=== PATIENT | male | born 1950 | race Caucasian/White ===

== ENCOUNTER 2021-07-24 12:37 | Emergency (ER) | payer MEDICARE, SELFPAY ==
--- NOTE | 2021-07-24 12:42 | ED.FALL ---
HPI - Fall General Chief Complaint: Fall Stated Complaint: head injury Time Seen by Provider: 07/24/21 12:43 Source: patient, family and RN notes reviewed History of Present Illness HPI Narrative: Patient is 71-year-old male who presents the urgent care with his son-in-law with complaints of a fall. Patient states that he tripped down one step and hit his head on the car prior to arrival. Patient has not had headache, fever, nausea, vomiting and has not lost consciousness. Patient states that he did scrape up the left knee but is not having any difficulty bearing weight or with ambulation. Patient is not on blood thinners. Denies of any confusion. No other acute complaints. No acute distress noted. Patient aware of the plan of care. Some parts of this dictation were generated by voice recognition software and may contain typographical and/or grammatical inaccuracies. Related Data Home Medications Medication Instructions Recorded Confirmed Unable to Obtain Home Medications 07/24/21 07/24/21 Allergies Allergy/AdvReac Type Severity Reaction Status Date / Time No Known Allergies Allergy Verified 07/24/21 12:59 Review of Systems Review of Systems: CONSTITUTIONAL: Denies fever, chills, or sweats. EYES: Denies visual changes, redness, or discharge. ENT: Denies rhinorrhea, congestion, sore throat, or otalgia. CARDIOVASCULAR: Denies chest pain, palpitations, or edema. RESPIRATORY: Denies cough or dyspnea. GASTROINTESTINAL: Denies abdominal pain, nausea, vomiting, or diarrhea. GENITOURINARY: Denies dysuria or hematuria. SKIN: Denies rash or itching. Reports of abrasion to left knee, bilateral hands and forehead MUSCULOSKELETAL: Denies back pain, joint pain, or myalgia. NEUROLOGIC: Denies headache, numbness, or weakness. Reports of hitting his head All other systems reviewed are negative, except as documented in HPI. PMFSH Comments At the time of my signature, I reviewed and agree with the nursing past medical, surgical, social, and family history. There is no relevant family history pertinent to the patient complaint. Exam Narrative: GENERAL: This is a well-nourished, well-developed patient, in no apparent distress. HEAD: normocephalic, atraumatic. EYES: PERRL. Sclera clear/white. Vision is grossly intact. EARS: External ears normal NOSE: External nose normal with no obvious nasal discharge, nares without redness, no rhinorrhea. THROAT: Mucous membranes moist NECK: Neck supple CARDIOVASCULAR: Regular rate and rhythm RESPIRATORY: Slight crackles throughout SKIN: Superficial abrasions noted bilateral hands, forehead and left knee. Warm, intact with no suspicious lesions or rash, good texture and turgor. NEURO: awake, alert, and oriented to person, place and time. There were no obvious focal neurologic abnormalities. EXTREMITIES: No clubbing, cyanosis, or edema. Range of motion all extremity within normal limits. Ambulation normal Course Course Level of Care: Express Care Visit Vital Signs Vital signs: Vital Signs Temperature 98.4 F 07/24/21 12:55 Pulse Rate 85 07/24/21 12:55 Respiratory Rate 20 07/24/21 12:55 Blood Pressure 149/100 H 07/24/21 12:55 Pulse Oximetry 99 07/24/21 12:55 Temperature 98.4 F 07/24/21 12:55 Pulse Rate 85 07/24/21 12:55 Respiratory Rate 20 07/24/21 12:55 Blood Pressure 149/100 H 07/24/21 12:55 Pulse Oximetry 99 07/24/21 12:55 Reviewed-patient is informed that they may have pre-hypertension or hypertension based on a blood pressure reading in the department. I recommend the patient call the primary care provider listed on their discharge instructions or a physician of their choice this week to arrange follow-up for further evaluation of possible pre-hypertension or hypertension. MDM - Fall MDM Narrative Medical decision making narrative: Advised the patient to be aware of signs and symptoms of worsening symptoms are reasons to go to the ER such as heada
[2021-07-24 12:55] VITALS: BP 149/100; PULSE 85; RESP 20; TEMP 36.9; O2SAT 99
== END 2021-07-24 13:23 | disposition home or self-care (01) ==
PROVIDERS: Emergency Provider Nurse Practitioner Family; PCP Family Medicine
DX: S60.512A Abrasion of left hand, initial encounter (principal); S60.511A Abrasion of right hand, initial encounter; S00.81XA Abrasion of other part of head, initial encounter; S80.212A Abrasion, left knee, initial encounter; S00.93XA Contusion of unspecified part of head, initial encounter; W10.9XXA Fall (on) (from) unspecified stairs and steps, initial encounter
CPT/HCPCS: 99212; G0463

== ENCOUNTER 2022-03-18 09:23 | Emergency (ER) | payer MEDICARE, MEDICAID, SELFPAY ==
[2022-03-18 09:33] VITALS: BP 130/79; PULSE 83; RESP 20; TEMP 36.7; O2SAT 98
--- NOTE | 2022-03-18 09:59 | ED.WEAKNESS ---
HPI - Weakness General Chief complaint: Weakness Stated complaint: Thinks he had stroke Time Seen by Provider: 03/18/22 10:00 Source: patient Mode of arrival: ambulatory Limitations: no limitations History of Present Illness HPI Narrative: 71-year-old male presented for complaint of I think I had a stroke. Endorses generalized weakness and suddenly requiring the use of a quad cane for 2 days, stating he feels unsteady. Denies associated chest pain, palpitations, shortness of breath, nausea, vomiting, diarrhea, urinary complaints, fevers or chills. He denies numbness, tingling, weakness of extremities, denies feeling like he is about to pass out. He denies significant medical history. States he is planning to have cataract surgery 03/28. Related Data Home Medications Medication Instructions Recorded Confirmed No Home Medications 03/18/22 03/18/22 Allergies Allergy/AdvReac Type Severity Reaction Status Date / Time No Known Allergies Allergy Verified 03/18/22 10:04 Review of Systems Review of Systems: CONSTITUTIONAL: Reports generalized weakness; Denies body aches, fever, chills, or sweats. EYES: Denies visual changes, redness, or discharge. ENT: Denies rhinorrhea, congestion CARDIOVASCULAR: Denies chest pain, palpitations, or edema. RESPIRATORY: Denies cough or dyspnea. GASTROINTESTINAL: Denies abdominal pain, nausea, vomiting, or diarrhea. GENITOURINARY: Denies dysuria or frequency SKIN: Denies rash, or wounds. MUSCULOSKELETAL: Denies back pain, joint pain, or myalgia. NEUROLOGIC: Denies headache, numbness, tingling, or weakness. All systems reviewed & are unremarkable except as noted in HPI and below PMFSH Comments At time of signature, I have reviewed and agree with nursing past medical, surgical, social and family history unless otherwise noted. Please see nursing chart for further information. There is no relevant family history pertinent to the presenting complaint Exam Narrative: GENERAL: Well-appearing HEAD: Normocephalic, atraumatic. EYES: EOMI. PERRLA. No redness or drainage. Conjunctivae normal. ENT: Mucous membranes pink and moist. No rhinorrhea. Right TM normal, unable to visualize left TM due to excess cerumen. Throat normal. Uvula midline. NECK: Normal AROM. Supple. No lymphadenopathy. CHEST: Clear to auscultation. HEART: Regular rate and rhythm. No murmur appreciated. Normal peripheral pulses. ABDOMEN: Soft, nontender, nondistended, normal active bowel sounds. MUSCULOSKELETAL: No bony tenderness. Walking with a cane. SKIN: Warm, dry, no rash. Capillary refill normal. NEURO: Alert and oriented x3. Gait steady with cane. No focal deficit. PSYCH: Normal affect. Course Course Emergency Course: Patient is aware of diagnosis, understands and agrees to treatment plan. Anticipatory guidance given. Portions of this record may have been created with voice recognition software Level of Care: Express Care Visit Vital Signs Vital signs: Vital Signs Temperature 98.1 F 03/18/22 09:33 Pulse Rate 83 03/18/22 09:33 Respiratory Rate 20 03/18/22 09:33 Blood Pressure 130/79 03/18/22 09:33 Pulse Oximetry 98 03/18/22 09:33 Oxygen Delivery Room Air 03/18/22 09:33 Temperature 98.1 F 03/18/22 09:33 Pulse Rate 83 03/18/22 09:33 Respiratory Rate 20 03/18/22 09:33 Blood Pressure 130/79 03/18/22 09:33 Pulse Oximetry 98 03/18/22 09:33 Oxygen Delivery Room Air 03/18/22 09:33 MDM - Weakness MDM Narrative Medical decision making narrative: Patient with subjective c/o weakness for 2 days. COVID and flu negative. Urine negative EKG unremarkable, reviewed results with patient. Advised ER transfer. Patient declines at this time. He is in stable condition The patient is clinically sober, AA&Ox3, free from distracting injury. 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
--- NOTE | 2022-03-18 10:26 | ECG_ITS ---
Measurements Intervals [place] Rate: 71 P: 56 [place]: 200 QRS: 23 QRSD: 81 T: 28 QT: 400 QTc: 435 Interpretive Statements BASELINE MOTION ARTIFACT SINUS RHYTHM WITHIN NORMAL LIMITS NO PREVIOUS ECG AVAILABLE FOR COMPARISON Electronically Signed On 03-18-2022 13:55:52 CDT by Yasmany Crespo M.D.
== END 2022-03-18 11:03 | disposition left against medical advice (07) ==
PROVIDERS: Emergency Provider Nurse Practitioner Family; PCP Family Medicine
DX: R53.1 Weakness (principal); Z20.822 Contact with and (suspected) exposure to COVID-19
CPT/HCPCS: 81003; 87426; 87804; 93005; 99213; C9803; G0463